=== PATIENT | male | born 1950 | race Caucasian/White ===

== ENCOUNTER 2017-03-14 18:06 | Emergency (ER) | payer BC ==
[~2017-03-14] VITALS: Ht 172.7 cm; Wt 77.1 kg
[2017-03-14 18:06] VITALS: BP 141/91
--- NOTE | 2017-03-14 18:26 | Emergency Room Report ---
History of Present Illness General Chief Complaint: Dyspnea/Respdistress Source: EMS Present Illness HPI [id number] BIBEMS with wheezing s/p toxic exposure in his shower Cleaning with "kaboom" - got overwhelmed by fumes Couldnt breather even with windows open Denies smoking, COPD. Distant history of asthma Improved with EMS given albuterol Asymtpomatic in ED Feels much better PMH includes Atrial fib Allergies: Uncoded Allergies: SULFA (Allergy, Unknown, 03/14/17) Patient History Past Medical History: AFib Past Surgical History: none Pertinent Family History: none Social History: Denies: alcohol use, drug use, smoking Immunizations: UTD Reviewed Nursing Documentation: PMH: Agreed, PSxH: Agreed Nursing Documentation-PMH Past Medical History: No History, Except For Hx Hypertension: Yes - High Cholesterol Hx COPD: Yes Review of Systems All Other Systems: negative except mentioned in HPI Physical Exam Vital Signs Date Time Temp Pulse Resp B/P Pulse Ox O2 Delivery O2 Flow Rate FiO2 03/14/17 18:04 98.2 94 18 141/91 97 Room Air Sp02 EP Interpretation: reviewed, normal General Appearance: normal inspection, well appearing, no apparent distress, alert, GCS 15, non-toxic Head: normocephalic, atraumatic Eyes: bilateral eye EOMI, bilateral eye PERRL ENT: normal ENT inspection, hearing grossly normal, normal voice Neck: normal inspection, full range of motion, supple, no bony tend Respiratory: normal inspection, lungs clear, normal breath sounds, no respiratory distress, no retraction, no accessory muscle use, no wheezing, speaking full sentences Cardiovascular #1: regular rate, rhythm, no edema Gastrointestinal: normal inspection, normal bowel sounds, non tender, soft, non -distended, no guarding, no hernia Genitourinary: no CVA tenderness Musculoskeletal: normal inspection, back normal, normal range of motion, Danielle' s Sign negative Neurologic: normal inspection, alert, oriented x3, responsive, 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 Afebrile. - EMS described wheezing, now resolved - EKG shows known Atrial fib. No RVR. No ischemia - Feels much better Wants to go home EKG Diagnostic Results Rate: tachycardiac, other - 110 Rhythm: other - Atrial fib ST Segments: no acute changes Rhythm Strip Diag. Results EP Interpretation: yes Rate: 110 Last Vital Signs Date Time Temp Pulse Resp B/P Pulse Ox O2 Delivery O2 Flow Rate FiO2 03/14/17 18:04 98.2 94 18 141/91 97 Room Air Status: improved Disposition: HOME, SELF-CARE Condition: Improved Patient Instructions: Hypoxemia NEL ANDERSON M.D. Mar 14, 2017 18:26
[2017-03-14] MEDS: Albuterol ud Inhalation HHN SCH ×2 (18:30→18:35)
[2017-03-14] MEDS: Ipratropium 0.02% Inh Soln 2.5ml UD HHN SCH ×2 (18:30→18:35)
[2017-03-14] MEDS ORDERED: Solu-MEDROL 125mg Inj IVP ONE (18:30)
[2017-03-14] MEDS ORDERED: Azithromycin 500 MG in NS 275 ML IV ONE (18:30)
[2017-03-14 18:45] VITALS: BP 141/91
== END 2017-03-14 18:45 | disposition home or self-care (01) ==
LOC: EDBD 18:06 → EMR 18:20 → CANBEDREQ 18:21 → EMR 18:45
DX: R06.00 Dyspnea, unspecified (principal); J44.9 Chronic obstructive pulmonary disease, unspecified; I48.91 Unspecified atrial fibrillation; Z88.2 Allergy status to sulfonamides
CPT/HCPCS: 93005; 94664; 99283